=== PATIENT | female | born 2000 | race African-American/Black ===

== ENCOUNTER 2024-08-22 16:52 | Emergency (ER) | payer OTHER, SELFPAY ==
[2024-08-22] VITALS (8 sets, daily range): BP systolic 106–132; BP diastolic 75–95; PULSE 58–79; RESP 16–18; TEMP 37.1; O2SAT 100
[2024-08-22 17:03] LABS: Glucose Point of Care 138 mg/dl (65-105)
--- OUTSIDE RECORDS SUMMARY | 2024-08-22 17:17 | XMS_ITS | Continuity of Care Document ---
Author Organization [facility] Address [address] [facility] [address] [place] [address] Phone Care Team Providers Care Seamer Name Role Phone Joslyn Palma Unavailable Unavailable Procedures Procedure Date Office/outpatient Visit, Est Office/outpatient Visit, Est Office/outpatient Visit, Est Advance Directives Directive Yes / No Effective Date File Name No Information Encounters Encounter Description Practice Location Reason(s) For Visit Diagnoses Date Provider Providers Copied on Encounter Office[place]pat [place], [facility] [id number] [place] [address] [address], [place], [place], [id number], [place] tel:[phone] [facility] No Information 7 Minerva Jorgensen. [address] , [address], [place], [place], [facility], . tel:[phone] Office[place]pat [place], [facility] [address] [place] [address] [address], [place], [place], [id number], [place] tel:[phone] [facility] No Information 7 Sepulveda OD Marvin. [address] , [address], [place], [place], [facility], . tel:[phone] Office/outpat ient Visit, [facility] [address] [place] [address] [address], [place], [place], [id number], [place] tel:[phone] [facility] No Information 200 7 Vincent Lacy. [address] [facility], [address], [place], [place], [id number], [place]. tel:[phone] Family History Family Member Type Diagnosis Age At Onset No Information Payers Payer name Insurance type Covered constitution party ID Authoriza tisunil(s) Medicaid [facility] [id number] Social History Type Description Quantity Date Captured Comments Sex Female Smoking Status No Information Chief Complaint And Reason For Visit No Information Reason For Referral Reason For Referral No Information History Of Present Illness Encounter Date Complaint History Of Prese nt Illness No Information Functional Status Date Functional Assessmen t No Information Instructions Date Instruction Additional Infor mation No Information Assessments Type Assessment Date No Information Patient Care Teams Name Effective Dates (start - stop) Status Members No Information
--- NOTE | 2024-08-22 17:38 | ED.ABDPAIN ---
HPI - Abdominal Pain General Chief Complaint: Abdominal Pain Stated Complaint: Abd pain Time Seen by Provider: 08/22/24 16:58 History of Present Illness HPI narrative: 24-year-old female presents to the ED via EMS from home for nausea and vomiting since she woke up this morning. Patient states last night she had several alcoholic drinks. Woke up this morning with nausea vomiting that has been persistent. She reports associated lightheadedness and weakness. She contacted EMS was found have a blood sugar of 45 and was given 175 mL of D10. Upon arrival to the ED patient's blood glucose is 138. She was also given IV fluids and Zofran states she feels much better. She states she was having some lower abdominal discomfort earlier today associated with vomiting but that has since resolved. She denies dysuria, hematuria, fever, cough or congestion. She is also requesting be checked for STDs. States she has had a protected sexual intercourse 3-4 partners in the past 6 months. She is endorsing a mild white discharge but denies any rashes or lesions, pelvic pain. LMP 07/30/2024. Related Data Allergies Allergy/AdvReac Type Severity Reaction Status Date / Time No Known Allergies Allergy Verified 08/22/24 17:00 Review of Systems Review of Systems: All systems reviewed & are unremarkable except as noted in HPI and below Exam Narrative: GENERAL: Well-appearing, well-nourished, and in no acute distress. HEAD: Normocephalic, atraumatic. EYES: EOMI. ENT: Nares clear, no rhinorrhea or epistaxis. Mucous membranes dry. NECK: Supple. CHEST: Clear to auscultation. No respiratory distress. HEART: Regular rate and rhythm. No murmur heard. Normal peripheral pulses. ABDOMEN: Soft, nontender, nondistended, normal active bowel sounds. No rebound, guarding or rigidity. No CVA tenderness. : Deferred EXTREMITIES: Normal range of motion. No edema. SKIN: Warm, dry, no rash. NEURO: No focal deficits. Alert and oriented x3 Course Vital Signs Vital signs: Vital Signs Pulse Rate 64 08/22/24 16:53 Respiratory Rate 16 08/22/24 16:53 Blood Pressure 121/83 08/22/24 16:53 Pulse Oximetry 100 08/22/24 16:53 Oxygen Delivery Room Air 08/22/24 16:53 Pulse Rate 68 08/22/24 20:05 Respiratory Rate 18 08/22/24 20:05 Blood Pressure 115/85 08/22/24 20:05 Pulse Oximetry 100 08/22/24 20:05 Oxygen Delivery Room Air 08/22/24 16:53 MDM - Abdominal Pain MDM Narrative Medical decision making narrative: 24-year-old female presents emergency department for nausea and vomiting after having several alcoholic drinks last night. Patient was found to be hypoglycemic at 45 upon their arrival and was given 175 mL of D10, upon arrival to our ED her blood glucose is 138. She received IV fluids and Zofran additionally and round states she feels significantly improved. She is also requesting STD testing. Abdomen is soft and nontender. CBC without leukocytosis. Hemoglobin 11.7 no prior for comparison. Chemistries are largely unremarkable. UA with 6-10 wbc's and 6-10 rbc's. Patient has no urinary complaints. ETOH less than 10. UDS positive for cannabinoids. Viral swabs are negative. GC/chlamydia and Trichomonas are negative. Lipase within normal limits. negative. Orthostatic vital signs within normal limits. Patient updated on results. She was given IV fluids and ate a meal in the ED. States she feels significantly improved. Repeat glucose within normal limits. On repeat abdominal exam, abdomen remained soft and nontender. Feel she is safe to be discharged home. Will send Zofran to the pharmacy. Encouraged increased fluid intake and follow-up with PCP. Strict ED return precautions discussed. She is agreeable with the plan verbalized understanding. Discharged in stable condition. Lab Data 08/22/24 17:48 08/22/24 17:48 Labs: Lab Results 08/22/24 08/22/24 08/22/24 Range/Units 16:57 17:48 17:53 WBC 6.9 (4.5-10.0) K/mm3 RBC 4.01 L (4.2-5.4) M/mm3 Hgb 11.7 L (12.0-15.0) g/dL Hct 36.3 L (37.0-47.0) % MCV 90.5 (80-100) fl MCH 29.2 (26-34) pg MCHC 32.2 (32-36) g/dl RDW 14.6 H (11.5-14.5) % Plt Count 224 (150-375) k/mm3 MPV 9.9 (7.4-10.4) fl Immature Gran % (Auto) 0.4 (0-0.5) % Neut % (Auto) 83.0 H (45.5-73.1) % Lymph % (Auto) 12.8 L (18.3-44.2) % Blanco % (Auto) 3.3 (2.6-8.5) % Eos % (Auto) 0.1 (0-4.4) % Baso % (Auto) 0.4 (0.2-1.2) % Lymph # (Auto) 0.88 L (0.9-3.2) K/mm3 Blanco # (Auto) 0.2 (0.1-0.6) K/mm3 Eos # (Auto) 0.0 (0-0.3) K/mm3 Baso # (Auto) 0.0 (0.0-0.1) K/mm3 Abs Immat Gran (auto) 0.03 (0.00-0.031) K/mm3 Absolute Neuts (auto) 5.7 (1.3-6.7) K/mm3 Absolute Nucleated RBC 0.000 (0.0-0.012) K/mm3 Nucleated RBC % 0.0 (0.0-0.2) % Sodium 141 (137-145) mmol/L Potassium 3.7 (3.4-5.0) mmol/L Chloride 109 H (98-107) mmol/L Carbon Dioxide 25 (22-30) mmol/L Anion Gap 7 (4-12) mmol/L BUN 10 (7-17) mg/dL Creatinine 0.59 L (0.7-1.0) mg/dL Estim Creat Clear Calc Not Reportable Estimated GFR > 60 (59 - ) Glucose 106 (65-110) mg/dL POC Capillary Glucose 138 H (65-105) mg/dl Calcium 9.1 (8.4-10.2) mg/dL Total Bilirubin 1.4 H (0.2-1.3) mg/dL AST 33 (14-36) U/L ALT 18 (6-35) U/L Alkaline Phosphatase 45 (38-126) U/L Total Protein 7.7 (6.3-8.2) g/dL Albumin 4.4 (3.5-5.1) g/dL Lipase 47 (23-300) U/L Urine Color Yellow (Yellow) Urine Appearance Cloudy H (Clear) Urine pH 7.5 (5.0-9.0) Ur Specific [place] 1.030 (1.001-1.035) Urine Protein 1+ H (Negative) mg/dL Urine Glucose (UA) Trace H (Negative) mg/dL Urine Ketones Trace H (Negative) mg/dL Ur Blood (Man) Negative (Negative) Urine Nitrate Negative (Negative) Urine Bilirubin Negative (Negative) Urine Urobilinogen 1.0 (<2.0) mg/dL Add Ur Microanalysis Reviewed Leukocyte Esterase Rfl Negative (Negative) CISCO/UL Urine RBC 6-10 H (0-2) /hpf Urine WBC 6-10 H (0-3) /hpf Ur Squamous Epith Cells Moderate (Few) /hpf Urine Bacteria 1+ H /hpf Urine Casts 0-2 POC Urine HCG, Qual Negative (Negative) Urine Opiates Screen Negative (Negative) Urine Methadone Screen Negative (Negative) Ur Barbiturates Screen Negative (Negative) Ur Phencyclidine Scrn Negative (Negative) Ur Amphetamine Screen Negative (Negative) U Benzodiazepines Scrn Negative (Negative) Urine Cocaine Screen Negative (Negative) U Cannabinoids Screen Positive A (Negative) Ethyl Alcohol < 10 (<10) mg/dL C. trachomatis (PCR) Not detected (NOT DETECTE) N. gonorrhoeae (PCR) Not detected (NOT DETECTE) T. vaginalis (PCR) Not detected (NOT DETECTE) Bact Vaginosis Panel Pending 08/22/24 Range/Units 20:00 WBC (4.5-10.0) K/mm3 RBC (4.2-5.4) M/mm3 Hgb (12.0-15.0) g/dL Hct (37.0-47.0) % MCV (80-100) fl MCH (26-34) pg MCHC (32-36) g/dl RDW (11.5-14.5) % Plt Count (150-375) k/mm3 MPV (7.4-10.4) fl Immature Gran % (Auto) (0-0.5) % Neut % (Auto) (45.5-73.1) % Lymph % (Auto) (18.3-44.2) % Blanco % (Auto) (2.6-8.5) % Eos % (Auto) (0-4.4) % Baso % (Auto) (0.2-1.2) % Lymph # (Auto) (0.9-3.2) K/mm3 Blanco # (Auto) (0.1-0.6) K/mm3 Eos # (Auto) (0-0.3) K/mm3 Baso # (Auto) (0.0-0.1) K/mm3 Abs Immat Gran (auto) (0.00-0.031) K/mm3 Absolute Neuts (auto) (1.3-6.7) K/mm3 Absolute Nucleated RBC (0.0-0.012) K/mm3 Nucleated RBC % (0.0-0.2) % Sodium (137-145) mmol/L Potassium (3.4-5.0) mmol/L Chloride (98-107) mmol/L Carbon Dioxide (22-30) mmol/L Anion Gap (4-12) mmol/L BUN (7-17) mg/dL Creatinine (0.7-1.0) mg/dL Estim Creat Clear Calc Estimated GFR (59 - ) Glucose (65-110) mg/dL POC Capillary Glucose 89 (65-105) mg/dl Calcium (8.4-10.2) mg/dL Total Bilirubin (0.2-1.3) mg/dL AST (14-36) U/L ALT (6-35) U/L Alkaline Phosphatase (38-126) U/L Total Protein (6.3-8.2) g/dL Albumin (3.5-5.1) g/dL Lipase (23-300) U/L Urine Color (Yellow) Urine Appearance (Clear) Urine pH (5.0-9.0) Ur Specific [place] (1.001-1.035) Urine Protein (Negative) mg/dL Urine Glucose (UA) (Negative) mg/dL Urine Ketones (Negative) mg/dL Ur Blood (Man) (Negative) Urine Nitrate (Negative) Urine Bilirubin (Negative) Urine Urobilinogen (<2.0) mg/dL Add Ur Microanalysis Leukocyte Esterase Rfl (Negative) CISCO/UL Urine RBC (0-2) /hpf Urine WBC (0-3) /hpf Ur Squamous Epith Cells (Few) /hpf Urine Bacteria /hpf Urine Casts POC Urine HCG, Qual (Negative) Urine Opiates Screen (Negative) Urine Methadone Screen (Negative) Ur Barbiturates Screen (Negative) Ur Phencyclidine Scrn (Negative) Ur Amphetamine Screen (Negative) U Benzodiazepines Scrn (Negative) Urine Cocaine Screen (Negative) U Cannabinoids Screen (Negative) Ethyl Alcohol (<10) mg/dL C. trachomatis (PCR) (NOT DETECTE) N. gonorrhoeae (PCR) (NOT DETECTE) T. vaginalis (PCR) (NOT DETECTE) Bact Vaginosis Panel Discharge Plan Discharge Clinical Impression: Nausea & vomiting Qualifiers: Vomiting type: unspecified Qualified Code(s): R11.2 - Nausea with vomiting, unspecified Patient Disposition: Home Condition: Stable Instructions: Antibiotic Form Additional Instructions: Please drink plenty fluids including water, Gatorade and Pedialyte. Follow up with her primary care provider. Return to the emergency department if you develop fever, your unable to keep down food or fluids, you develop focal abdominal pain, or other concerning symptoms. Patient Language: Ghanaian Prescriptions: New ondansetron 4 mg tablet,disintegrating 4 mg PO Q8H Qty: 14 0RF Follow-up/Referrals: Cheryl Barrett [Other]
[2024-08-22] MEDS: SODIUM CHLORIDE 0.9% IV 1,000 ML 999 ML IV CONT (17:50)
[2024-08-22 17:55] LABS: BEDSIDEPREGUCG Negative (Negative)
[2024-08-22 18:00] LABS: Basophils Percent Auto 0.4 % (0.2-1.2); Eosinophils Percent Auto 0.1 % (0-4.4); Hematocrit 36.3 % (37.0-47.0); Hemoglobin 11.7 g/dL (12.0-15.0); Immature Granulocyte Absolute 0.03 K/mm3 (0.00-0.031); Immature Granulocyte Percent A 0.4 % (0-0.5); Lymphocytes Absolute Auto 0.88 K/mm3 (0.9-3.2); Lymphocytes Percent Auto 12.8 % (18.3-44.2); Mean Corpuscular HGB Conc 32.2 g/dl (32-36); Mean Corpuscular Hemoglobin 29.2 pg (26-34); Mean Corpuscular Volume 90.5 fl (80-100); Mean Platelet Volume 9.9 fl (7.4-10.4); Monocytes Absolute Auto 0.2 K/mm3 (0.1-0.6); Monocytes Percent Auto 3.3 % (2.6-8.5); Neutrophils Absolute Auto 5.7 K/mm3 (1.3-6.7); Platelet Count Result 224 k/mm3 (150-375); Red Blood Count 4.01 M/mm3 (4.2-5.4); Red Cell Distribution Width 14.6 % (11.5-14.5); White Blood Count 6.9 K/mm3 (4.5-10.0)
[2024-08-22 18:05] LABS: Ethanol < 10 mg/dL (<10)
[2024-08-22 18:13] LABS: Alanine Aminotransferase 18 U/L (6-35); Albumin Level 4.4 g/dL (3.5-5.1); Alkaline Phosphatase 45 U/L (38-126); Anion Gap 7 mmol/L (4-12); Aspartate Amino Transferase 33 U/L (14-36); Bilirubin,Total 1.4 mg/dL (0.2-1.3); Blood Urea Nitrogen 10 mg/dL (7-17); Calcium 9.1 mg/dL (8.4-10.2); Carbon Dioxide 25 mmol/L (22-30); Chloride 109 mmol/L (98-107); Estimated Glomerular Filt Rate > 60; Glucose 106 mg/dL (65-110); Lipase 47 U/L (23-300); Potassium 3.7 mmol/L (3.4-5.0); Sodium 141 mmol/L (137-145); Total Protein 7.7 g/dL (6.3-8.2)
[2024-08-22 18:19] LABS: Amphetamine Screen Urine Negative (Negative); Barbiturate Screen Urine Negative (Negative); Benzodiazepines Screen Urine Negative (Negative); Cannabinoid Screen Urine Positive (Negative); Cocaine Screen Urine Negative (Negative); Methadone Screen Urine Negative (Negative); Opiate Screen Urine Negative (Negative); Phencyclidine Screen Urine Negative (Negative)
[2024-08-22 18:46] LABS: Add Urine Microscopic? YES; Appearance Urine Cloudy (Clear); Bacteria Urine 1+ /hpf; Bilirubin Urine Negative (Negative); Blood Urine Negative (Negative); Color Urine Yellow (Yellow); Glucose Urine UA Trace mg/dL (Negative); Ketones Urine Trace mg/dL (Negative); Leukocyte Esterase Ur Negative LEU/UL (Negative); Need Manual Microscopic Reviewed; Nitrate Urine Negative (Negative); Non Pathogenic Casts 0-2; Protein Urine 1+ mg/dL (Negative); Squamous Epithelial Cell Urine Moderate /hpf (Few); pH Urine 7.5 (5.0-9.0)
[2024-08-22 19:03] LABS: Trichomonas Vag PCR NOT DETECTED (NOT DETECTE)
[2024-08-22 19:28] LABS: Chlamydia trachomatis NOT DETECTED (NOT DETECTE); Neisseria gonorrhoeae PCR NOT DETECTED (NOT DETECTE)
[2024-08-22 20:03] LABS: Glucose Point of Care 89 mg/dl (65-105)
[2024-08-24 15:39] LABS: Bacterial Vaginosis POSITIVE (NEGATIVE)
== END 2024-08-22 20:47 | disposition home or self-care (01) ==
PROVIDERS: Emergency Provider Physician Assistant
DX: R11.2 Nausea with vomiting, unspecified (principal)
CPT/HCPCS: 36415; 80053; 80307; 81001; 81025; 81513; 82077; 82948; 83690; 85025; 87491; 87591; 87661; 96360; 99284; J7030